=== PATIENT | male | born 1950 | race Hispanic/Latino ===

== ENCOUNTER 2018-03-11 08:55 | Outpatient (CLI) | payer OTHER ==
--- NOTE | 2018-03-11 10:52 | RAD ---
TWO VIEWS CHEST: Comparison: For one week. FINDINGS: PA and lateral views were obtained. The lungs are well aerated. No evidence of active intrathoracic d isease seen. No evidence of effusions, pneumonia, or pneumothorax seen. IMPRESSION: Unremarkable two views of the chest. POS: [facility]
== END 2018-03-11 08:56 | disposition home or self-care (01) ==
LOC: SCSRAD 08:55
PROVIDERS: ATTEND Family Medicine
DX: R05 Cough (principal)
CPT/HCPCS: 71046

== ENCOUNTER 2021-04-03 16:30 | Outpatient (CLI) | payer BC | END 2021-04-03 16:31 | disposition home or self-care (01) | LOC: SLEEPLAB 16:30 | PROVIDERS: ATTEND Psychiatry & Neurology Neurology | DX: G47.33 Obstructive sleep apnea (adult) (pediatric) (principal) | CPT/HCPCS: 95806 ==

== ENCOUNTER 2021-11-29 19:30 | Outpatient (CLI) | payer BC | END 2021-11-29 19:31 | disposition home or self-care (01) | LOC: SLEEPLAB 19:30 | PROVIDERS: ATTEND Family Medicine | DX: G47.9 Sleep disorder, unspecified (principal); G47.33 Obstructive sleep apnea (adult) (pediatric); R06.83 Snoring; G47.10 Hypersomnia, unspecified; E66.9 Obesity, unspecified; Z68.39 Body mass index [BMI] 39.0-39.9, adult | CPT/HCPCS: 95811 ==

== ENCOUNTER 2022-03-04 07:15 | Day surgery (SDC) | payer BC ==
[2022-02-28 13:22] VITALS: BMI 38.9
[2022-03-04 08:06] VITALS: BP 131/73; TEMP 97.9
== END 2022-03-04 09:45 | disposition home or self-care (01) ==
LOC: RAD 07:15
PROVIDERS: ATTEND Family Medicine
PROC: 009U3ZX Drainage of Spinal Canal, Percutaneous Approach, Diagnostic (ICD-10-PCS; principal; 2022-03-04)
DX: G44.84 Primary exertional headache (principal); I10 Essential (primary) hypertension; M54.12 Radiculopathy, cervical region; M19.90 Unspecified osteoarthritis, unspecified site; M25.561 Pain in right knee; M25.562 Pain in left knee; Z79.1 Long term (current) use of non-steroidal anti-inflammatories (NSAID); Z79.82 Long term (current) use of aspirin; Z79.899 Other long term (current) drug therapy; Z88.2 Allergy status to sulfonamides
CPT/HCPCS: 62270

== ENCOUNTER 2023-11-18 10:01 | Outpatient (CLI) | payer BC | END 2023-11-18 10:02 | disposition home or self-care (01) | LOC: SCSRAD 10:01 | DX: R06.00 Dyspnea, unspecified (principal) | CPT/HCPCS: 71046 ==

== ENCOUNTER 2024-12-21 09:25 | Outpatient (CLI) | payer BC | END 2024-12-21 09:26 | disposition home or self-care (01) | LOC: SCSRAD 09:25 | PROVIDERS: ATTEND Student in an Organized Health Care Education/Training Program | DX: R09.89 Other specified symptoms and signs involving the circulatory and respiratory systems (principal) | CPT/HCPCS: 71046 ==